=== PATIENT | male | born 1965 | race Caucasian/White ===

== ENCOUNTER 2017-12-19 23:35 | Inpatient (IN) | payer OTHER ==
[~2017-12-19] VITALS: Ht 182.9 cm; Wt 112.4 kg
[2017-12-19] MEDS ORDERED: METO25TA35 PO (23:44)
[2017-12-20 00:29] LABS: MEAN CORPUSCULAR HEMOGLOBIN 32.2 pg (27.5-34.5); MEAN CORPUSCULAR HGB CONC 34.5 g/dL (33.2-36.2); MEAN CORPUSCULAR VOLUME 93.5 fL (81-97); MEAN PLATELET VOLUME 7.5 fL (7.4-10.4); PLATELET COUNT 160 x10^3/uL (130-400); RED BLOOD COUNT 4.59 x10^6/uL (4.38-5.82); RED CELL DISTRIBUTION WIDTH 17.1 % (9.4-14.8)
[2017-12-20] MEDS ORDERED: NICOTINE 7 MG/24 HR PATCH.TD24 TD SCH (00:30)
[2017-12-20 00:32] LABS: ALANINE AMINOTRANSFERASE 194 U/L (12-78); ALBUMIN 3.5 g/dL (3.4-5.0); ANION GAP 10 mmol/L (5-15); CALCIUM 7.9 mg/dL (8.5-10.1); CHLORIDE 109 mmol/L (98-107); CREATININE 1.19 mg/dL (0.7-1.3); SALICYLATE LEVEL 3.2 mg/dL (2.8-20.0)
[2017-12-20] MEDS ORDERED: NICOTINE 7 MG/24 HR PATCH.TD24 ONE (00:33)
[2017-12-20 00:34] LABS: ALKALINE PHOSPHATASE 122 U/L (45-117); BILIRUBIN,TOTAL 0.8 mg/dL (0.2-1.0); TOTAL PROTEIN 8.8 g/dL (6.4-8.2)
[2017-12-20 00:37] LABS: ACETAMINOPHEN < 2 mcg/mL (10-30)
[2017-12-20 01:04] LABS: MD YES
[2017-12-20 01:13] LABS: BAND#(MANUAL) 0.24 x10^3/uL; BANDS%(MANUAL) 3 % (0-7); BASOS#(MANUAL) 0.08 x10^3/uL (0-0.1); BASOS% (MANUAL) 1 % (0-1); EOS% (MANUAL) 5 % (1-7); LYMPH#(MANUAL) 4.35 x10^3/uL (1-3.4); LYMPHS% (MANUAL) 55 % (22-44); METAMYELOCYTES# (MANUAL) 0.08 x10^3/uL (0-0); METAMYELOCYTES% (MANUAL) 1 % (0-1); MONOS#(MANUAL) 0.24 x10^3/uL (0.3-2.7); MONOS% (MANUAL) 3 % (2-9); SEG#(MANUAL) 2.53 x10^3/uL (1.8-6.8); SEGS% (MANUAL) 32 % (42-75)
[2017-12-20 01:15] LABS: ANISOCYTOSIS 1+; SMUDGE CELLS 1+
[2017-12-20 01:16] LABS: <PLATELET ESTIMATE> ADEQUATE; <PLT MORPHOLOGY> NORMAL PLT MORPH
[2017-12-20 06:35] LABS: AMPHETAMINE SCREEN, URINE Negative (Negative); BARBITURATE SCREEN, URINE Negative (Negative); BENZODIAZEPINE SCREEN, URINE Negative (Negative); CANNABINOID SCREEN, URINE Negative (Negative); COCAINE SCREEN, URINE Negative (Negative); METHADONE SCREEN, URINE Negative (Negative); OPIATE SCREEN, URINE Negative (Negative)
[2017-12-20] MEDS ORDERED: ONDANSETRON ODT 4 MG ONE (09:27)
[2017-12-20] MEDS ORDERED: ONDANSETRON ODT 4 MG PO ONE (09:30)
[2017-12-20] MEDS ORDERED: POTASSIUM CHLORIDE 20 MEQ, MAGNESIUM SULFATE 2 GM, THIAMINE 100 MG, MVI ADULT 10 ML, FO... IV SCH (12:06)
[2017-12-20] MEDS ORDERED: DOCUSATE 100 MG CAPSULE PO PRN (12:30)
[2017-12-20] MEDS ORDERED: POLYETHYLENE GLYCOL 17 GM PACKET PO PRN (12:30)
[2017-12-20] MEDS ORDERED: hydrALAzine 20 MG/ML, 1ML IVPush PRN (12:30)
[2017-12-20] MEDS ORDERED: LORazepam 1MG TABLET PO PRN ×3 (12:30)
[2017-12-20] MEDS ORDERED: THIAMINE 200 MG in DEXTROSE 5% 50 ML IVPB ONE (12:30)
[2017-12-20] MEDS ORDERED: BISACODYL 10 MG SUPP PR PRN (12:30)
[2017-12-20 12:53] LABS: INTERNATIONAL NORMALIZED RATIO 1.21 (0.93-1.1); PROTHROMBIN TIME 12.4 Seconds (9.6-11.5)
[2017-12-20 13:03] LABS: FREE T4 (FREE THYROXINE) 0.97 ng/dL (0.76-1.46); TROPONIN I < 0.015 ng/mL (0.000-0.045)
[2017-12-20 13:30] VITALS: BP 162/90
[2017-12-20] MEDS: HEPARIN 5,000 UNITS/ML, 1ML SQ SCH ×2 (13:40→20:41)
[2017-12-20] MEDS: ONDANSETRON 2MG/ML, 2ML IVPush PRN ×2 (13:40→20:40)
[2017-12-20] MEDS: NICOTINE 14MG/24 HR PATCH.TD24 TD SCH (13:41)
[2017-12-20] MEDS: SODIUM CHLORIDE 0.9% 1,000 ML IV SCH (13:41)
[2017-12-20] MEDS ORDERED: MAGNESIUM SULFATE 3 GM in SODIUM CHLORIDE 0.9% 100 ML IV ONE (14:00)
[2017-12-20] MEDS: LORazepam 1MG TABLET PO PRN ×2 (15:28→20:41)
[2017-12-20 18:39] LABS: TROPONIN I < 0.015 ng/mL (0.000-0.045)
[2017-12-20 20:33] VITALS: BP 163/97
[2017-12-20] MEDS: CALCIUM CARBONATE 500 MG TABLET PO SCH (20:40)
[2017-12-20] MEDS: FAMOTIDINE 20 MG/2 ML IVPush SCH (20:40)
[2017-12-21 01:07] VITALS: BP 155/93
[2017-12-21] MEDS: ONDANSETRON 2MG/ML, 2ML IVPush PRN ×3 (04:55→20:39)
[2017-12-21] MEDS: HEPARIN 5,000 UNITS/ML, 1ML SQ SCH ×3 (04:55→20:46)
[2017-12-21] MEDS: SODIUM CHLORIDE 0.9% 1,000 ML IV SCH ×2 (04:56→13:22)
[2017-12-21 05:41] LABS: CHLORIDE 109 mmol/L (98-107)
[2017-12-21 05:49] LABS: ALANINE AMINOTRANSFERASE 155 U/L (12-78); ALBUMIN 2.8 g/dL (3.4-5.0); ALKALINE PHOSPHATASE 104 U/L (45-117); ANION GAP 9 mmol/L (5-15); BILIRUBIN,TOTAL 1.6 mg/dL (0.2-1.0); CALCIUM 7.6 mg/dL (8.5-10.1); CREATININE 1.15 mg/dL (0.7-1.3); TOTAL PROTEIN 7.4 g/dL (6.4-8.2)
[2017-12-21 05:54] LABS: BASOPHILS # (AUTO) 0.05 x10^3/uL (0-0.1); BASOPHILS % (AUTO) 1 % (0-1); EOSINOPHILS # (AUTO) 0.29 x10^3/uL (0-0.4); EOSINOPHILS % (AUTO) 5 % (1-7); LYMPHOCYTES # (AUTO) 2.16 x10^3/uL (1-3.4); LYMPHOCYTES % (AUTO) 39 % (22-44); MD NO; MEAN CORPUSCULAR HEMOGLOBIN 32.5 pg (27.5-34.5); MEAN CORPUSCULAR HGB CONC 34.6 g/dL (33.2-36.2); MEAN CORPUSCULAR VOLUME 93.9 fL (81-97); MONOCYTES # (AUTO) 0.64 x10^3/uL (0.2-0.8); MONOCYTES % (AUTO) 12 % (2-9); NEUTROPHILS # (AUTO) 2.34 x10^3/uL (1.8-6.8); NEUTROPHILS % (AUTO) 43 % (42-75); PLATELET COUNT 136 x10^3/uL (130-400); RED BLOOD COUNT 4.24 x10^6/uL (4.38-5.82); RED CELL DISTRIBUTION WIDTH 17.1 % (9.4-14.8)
[2017-12-21 07:15] VITALS: BP 162/95
[2017-12-21] MEDS: CALCIUM CARBONATE 500 MG TABLET PO SCH ×2 (08:18→20:39)
[2017-12-21] MEDS: FAMOTIDINE 20 MG/2 ML IVPush SCH ×2 (08:18→20:39)
[2017-12-21] MEDS: LORazepam 0.5MG TABLET PO PRN (08:29)
[2017-12-21 12:11] VITALS: BP 158/89
[2017-12-21] MEDS: NICOTINE 14MG/24 HR PATCH.TD24 TD SCH (12:25)
[2017-12-21] MEDS: LORazepam 1MG TABLET PO PRN ×3 (14:24→23:28)
[2017-12-21 19:06] VITALS: BP 146/92
[2017-12-21] MEDS ORDERED: POTASSIUM CHLORIDE 20 MEQ, MAGNESIUM SULFATE 2 GM, THIAMINE 100 MG, MVI ADULT 10 ML, FO... IV SCH (20:00)
[2017-12-22] MEDS ORDERED: PROMETHAZINE 25 MG/ML, 1ML IM PRN
[2017-12-22 00:27] VITALS: BP 155/90
[2017-12-22] MEDS: HEPARIN 5,000 UNITS/ML, 1ML SQ SCH ×3 (04:30→20:30)
[2017-12-22 06:00] LABS: ALANINE AMINOTRANSFERASE 178 U/L (12-78); ALBUMIN 2.9 g/dL (3.4-5.0); ANION GAP 7 mmol/L (5-15); BILIRUBIN, DIRECT 0.6 mg/dL (0.1-0.2); CHLORIDE 108 mmol/L (98-107); CREATININE 1.07 mg/dL (0.7-1.3); HIGH-SENSITIVITY CRP 0.03 mg/dL (0.02-0.30)
[2017-12-22 06:02] LABS: ALKALINE PHOSPHATASE 103 U/L (45-117); BILIRUBIN,TOTAL 1.6 mg/dL (0.2-1.0); TOTAL PROTEIN 7.7 g/dL (6.4-8.2)
[2017-12-22 06:08] LABS: BASOPHILS # (AUTO) 0.04 x10^3/uL (0-0.1); BASOPHILS % (AUTO) 1 % (0-1); EOSINOPHILS # (AUTO) 0.26 x10^3/uL (0-0.4); EOSINOPHILS % (AUTO) 4 % (1-7); LYMPHOCYTES # (AUTO) 2.53 x10^3/uL (1-3.4); LYMPHOCYTES % (AUTO) 41 % (22-44); MD NO; MEAN CORPUSCULAR HEMOGLOBIN 31.8 pg (27.5-34.5); MEAN CORPUSCULAR HGB CONC 34.2 g/dL (33.2-36.2); MEAN CORPUSCULAR VOLUME 93.2 fL (81-97); MEAN PLATELET VOLUME 8.5 fL (7.4-10.4); MONOCYTES # (AUTO) 0.52 x10^3/uL (0.2-0.8); MONOCYTES % (AUTO) 9 % (2-9); NEUTROPHILS # (AUTO) 2.76 x10^3/uL (1.8-6.8); NEUTROPHILS % (AUTO) 45 % (42-75); PLATELET COUNT 132 x10^3/uL (130-400); RED CELL DISTRIBUTION WIDTH 16.5 % (9.4-14.8)
[2017-12-22 06:10] LABS: HCT (SEDRATE) 39.2 % (39.2-51.8)
[2017-12-22] MEDS: SODIUM CHLORIDE 0.9% 1,000 ML IV SCH (06:24)
[2017-12-22 07:13] VITALS: BP 157/90
[2017-12-22] MEDS: CALCIUM CARBONATE 500 MG TABLET PO SCH ×2 (08:39→20:39)
[2017-12-22] MEDS: FAMOTIDINE 20 MG/2 ML IVPush SCH (08:39)
[2017-12-22 14:08] VITALS: BP 151/90
[2017-12-22] MEDS ORDERED: IBUPROFEN 200 MG TABLET PO PRN (14:30)
[2017-12-22] MEDS: NICOTINE 14MG/24 HR PATCH.TD24 TD SCH (14:43)
[2017-12-22 20:00] VITALS: BP 157/104
[2017-12-22] MEDS: FAMOTIDINE 20 MG TABLET PO SCH (20:39)
[2017-12-22] MEDS: LORazepam 0.5MG TABLET PO PRN (20:45)
[2017-12-22] MEDS ORDERED: ONDANSETRON ODT 4 MG PO PRN (22:30)
[2017-12-23 00:36] VITALS: BP 135/87
[2017-12-23] MEDS: LORazepam 1MG TABLET PO PRN (02:22)
[2017-12-23] MEDS: HEPARIN 5,000 UNITS/ML, 1ML SQ SCH ×3 (02:22→20:25)
[2017-12-23 05:34] LABS: BASOPHILS # (AUTO) 0.04 x10^3/uL (0-0.1); BASOPHILS % (AUTO) 1 % (0-1); EOSINOPHILS # (AUTO) 0.29 x10^3/uL (0-0.4); EOSINOPHILS % (AUTO) 4 % (1-7); LYMPHOCYTES # (AUTO) 3.02 x10^3/uL (1-3.4); LYMPHOCYTES % (AUTO) 41 % (22-44); MD NO; MEAN CORPUSCULAR HEMOGLOBIN 32.4 pg (27.5-34.5); MEAN CORPUSCULAR HGB CONC 34.2 g/dL (33.2-36.2); MEAN CORPUSCULAR VOLUME 94.6 fL (81-97); MEAN PLATELET VOLUME 8.3 fL (7.4-10.4); MONOCYTES # (AUTO) 0.63 x10^3/uL (0.2-0.8); MONOCYTES % (AUTO) 9 % (2-9); NEUTROPHILS # (AUTO) 3.32 x10^3/uL (1.8-6.8); NEUTROPHILS % (AUTO) 45 % (42-75); PLATELET COUNT 148 x10^3/uL (130-400); RED BLOOD COUNT 4.29 x10^6/uL (4.38-5.82); RED CELL DISTRIBUTION WIDTH 16.5 % (9.4-14.8)
[2017-12-23 05:42] LABS: ALANINE AMINOTRANSFERASE 214 U/L (12-78); ALBUMIN 2.9 g/dL (3.4-5.0); ANION GAP 6 mmol/L (5-15); BILIRUBIN, DIRECT 0.5 mg/dL (0.1-0.2); CHLORIDE 107 mmol/L (98-107); CREATININE 1.22 mg/dL (0.7-1.3)
[2017-12-23 05:44] LABS: ALKALINE PHOSPHATASE 99 U/L (45-117); BILIRUBIN,INDIRECT 0.8 mg/dL (0.0-2.0); BILIRUBIN,TOTAL 1.3 mg/dL (0.2-1.0); TOTAL PROTEIN 7.9 g/dL (6.4-8.2)
[2017-12-23 06:54] VITALS: BP 155/84
[2017-12-23 08:17] LABS: INTERNATIONAL NORMALIZED RATIO 1.32 (0.93-1.1); PROTHROMBIN TIME 13.5 Seconds (9.6-11.5)
[2017-12-23] MEDS: FAMOTIDINE 20 MG TABLET PO SCH ×2 (08:28→20:23)
[2017-12-23] MEDS: CALCIUM CARBONATE 500 MG TABLET PO SCH ×2 (08:28→20:24)
[2017-12-23 08:30] LABS: FREE T4 (FREE THYROXINE) 1.11 ng/dL (0.76-1.46); THYROID STIMULATING HORMONE 2.89 mIU/L (0.358-3.740)
[2017-12-23] MEDS: NICOTINE 14MG/24 HR PATCH.TD24 TD SCH (12:49)
[2017-12-23 13:10] VITALS: BP 143/88
[2017-12-23 20:00] VITALS: BP 127/88
[2017-12-23] MEDS ORDERED: MIRTAZAPINE 15 MG TABLET PO SCH (21:00)
[2017-12-24 02:00] VITALS: BP 136/86
[2017-12-24] MEDS: HEPARIN 5,000 UNITS/ML, 1ML SQ SCH ×2 (04:30→12:23)
[2017-12-24 05:52] LABS: BASOPHILS # (AUTO) 0.02 x10^3/uL (0-0.1); BASOPHILS % (AUTO) 0 % (0-1); EOSINOPHILS # (AUTO) 0.35 x10^3/uL (0-0.4); EOSINOPHILS % (AUTO) 4 % (1-7); LYMPHOCYTES % (AUTO) 38 % (22-44); MD NO; MEAN CORPUSCULAR HEMOGLOBIN 32.5 pg (27.5-34.5); MEAN CORPUSCULAR HGB CONC 34.3 g/dL (33.2-36.2); MEAN CORPUSCULAR VOLUME 94.6 fL (81-97); MONOCYTES # (AUTO) 0.64 x10^3/uL (0.2-0.8); MONOCYTES % (AUTO) 7 % (2-9); NEUTROPHILS # (AUTO) 4.56 x10^3/uL (1.8-6.8); NEUTROPHILS % (AUTO) 51 % (42-75); PLATELET COUNT 167 x10^3/uL (130-400); RED BLOOD COUNT 4.47 x10^6/uL (4.38-5.82)
[2017-12-24 06:01] LABS: ANION GAP 7 mmol/L (5-15); CALCIUM 8.9 mg/dL (8.5-10.1); CHLORIDE 106 mmol/L (98-107)
[2017-12-24 06:05] LABS: ALANINE AMINOTRANSFERASE 221 U/L (12-78); ALKALINE PHOSPHATASE 107 U/L (45-117); BILIRUBIN, DIRECT 0.4 mg/dL (0.1-0.2); BILIRUBIN,INDIRECT 0.7 mg/dL (0.0-2.0); BILIRUBIN,TOTAL 1.1 mg/dL (0.2-1.0); CREATININE 1.29 mg/dL (0.7-1.3); TOTAL PROTEIN 8.2 g/dL (6.4-8.2)
[2017-12-24 07:44] VITALS: BP 132/88
[2017-12-24] MEDS: FAMOTIDINE 20 MG TABLET PO SCH (08:52)
[2017-12-24] MEDS: CALCIUM CARBONATE 500 MG TABLET PO SCH (08:52)
[2017-12-24] MEDS ORDERED: MIRT15TA4 PO (11:17)
[2017-12-24] MEDS ORDERED: NICO-486 TD (11:17)
[2017-12-24] MEDS ORDERED: CHLO10CA6 PO (11:19)
[2017-12-24] MEDS: NICOTINE 14MG/24 HR PATCH.TD24 TD SCH (12:38)
[2017-12-24 14:05] VITALS: BP 136/84
[2017-12-26 09:01] LABS: ANA SCREEN POSITIVE (Negative); ANTI-NUCLEAR ANTIBODY PATTERN SPECKLED
== END 2017-12-24 18:19 | disposition home or self-care (01) | DRG 881 ==
LOC: ED 12-20 08:58 → EDIP 12-20 11:18 → 4WST 12-20 13:17
PROVIDERS: ADMIT Hospitalist; ATTEND Hospitalist
DX: F32.9 Major depressive disorder, single episode, unspecified (principal); R45.851 Suicidal ideations; F10.239 Alcohol dependence with withdrawal, unspecified; B19.20 Unspecified viral hepatitis C without hepatic coma; F17.210 Nicotine dependence, cigarettes, uncomplicated; I16.0 Hypertensive urgency; I10 Essential (primary) hypertension; F10.220 Alcohol dependence with intoxication, uncomplicated; Z59.0 Homelessness; Z83.3 Family history of diabetes mellitus
CPT/HCPCS: 36415; 99285; J7042; S0028; 76700; 80048; 80053; 80074; 80076; 80307; 80329; 82962; 83690; 83735; 84100; 84439; 84443; 84484; 85025; 85610; 85651; 86038; 86039; 86141; 87040; 87521; 93005; J1644; J2405; J2550; J3411; J3475; J3480; Q0162; G0480; J7030

== ENCOUNTER 2018-01-10 12:10 | Emergency (ER) | payer OTHER ==
[~2018-01-10] VITALS: Ht 182.9 cm; Wt 111.8 kg
[~2018-01-10 12:10] MED LIST: CHLO10CA6 PO; METO25TA35 PO; MIRT15TA4 PO; NICO-486 TD
[2018-01-10 12:17] VITALS: BP 135/89
[2018-01-10 12:50] LABS: BASOPHILS # (AUTO) 0.04 x10^3/uL (0-0.1); BASOPHILS % (AUTO) 1 % (0-1); EOSINOPHILS # (AUTO) 0.25 x10^3/uL (0-0.4); EOSINOPHILS % (AUTO) 4 % (1-7); LYMPHOCYTES # (AUTO) 3.22 x10^3/uL (1-3.4); LYMPHOCYTES % (AUTO) 45 % (22-44); MD NO; MEAN CORPUSCULAR HEMOGLOBIN 33.3 pg (27.5-34.5); MEAN CORPUSCULAR HGB CONC 34.4 g/dL (33.2-36.2); MEAN CORPUSCULAR VOLUME 96.9 fL (81-97); MEAN PLATELET VOLUME 7.4 fL (7.4-10.4); MONOCYTES # (AUTO) 0.52 x10^3/uL (0.2-0.8); MONOCYTES % (AUTO) 7 % (2-9); NEUTROPHILS # (AUTO) 3.06 x10^3/uL (1.8-6.8); NEUTROPHILS % (AUTO) 43 % (42-75); PLATELET COUNT 175 x10^3/uL (130-400); RED BLOOD COUNT 4.65 x10^6/uL (4.38-5.82); RED CELL DISTRIBUTION WIDTH 18.1 % (9.4-14.8)
[2018-01-10 12:58] LABS: ALBUMIN 3.7 g/dL (3.4-5.0); ANION GAP 14 mmol/L (5-15); CALCIUM 8.7 mg/dL (8.5-10.1); CHLORIDE 109 mmol/L (98-107); CREATININE 1.22 mg/dL (0.7-1.3)
[2018-01-10 13:01] LABS: ACETAMINOPHEN < 2 mcg/mL (10-30)
[2018-01-10] MEDS ORDERED: ONDANSETRON ODT 8 MG ONE (13:03)
[2018-01-10] MEDS ORDERED: ONDANSETRON ODT 8 MG PO ONE (13:30)
== END 2018-01-10 17:20 | disposition home or self-care (01) ==
LOC: ED 12:35
DX: F10.229 Alcohol dependence with intoxication, unspecified (principal); F32.9 Major depressive disorder, single episode, unspecified
CPT/HCPCS: 36415; 80048; 80307; 80329; 82040; 85025; 99284; Q0162; G0480